=== PATIENT | male | born 2000 | race African-American/Black ===

== ENCOUNTER 2022-12-10 14:41 | Emergency (ER) | payer OTHER ==
[2022-12-10 14:47] VITALS: BP 147/88; PULSE 83; RESP 18; TEMP 98.7; BMI 30.8
[2022-12-10] MEDS ORDERED: hydrOXYzine PAMOATE 25 MG CAPSULE (FP) PO ONE ×2 (15:39→15:41)
[2022-12-10] MEDS ORDERED: MAG HYDROX/AL HYDROX/SIMETH 30 ML UNIT-DOSE CUP PO ONE (15:39)
[2022-12-10] MEDS ORDERED: FAMOTIDINE 20 MG TABLET PO ONE (15:39)
[2022-12-10] MEDS ORDERED: FAMOTIDINE 20 MG TABLET ONE (15:43)
[2022-12-10] MEDS ORDERED: MAG HYDROX/AL HYDROX/SIMETH 30 ML UNIT-DOSE CUP ONE (15:43)
[2022-12-10 15:51] LABS: BASO % 0.5 % (0-2.0); EOS % 0.3 % (0-4.5); HEMATOCRIT 45.3 % (35.4-49); HEMOGLOBIN 14.8 GM/dL (11.7-16.9); LYMPH % 24.6 % (8-40); MCH 25.6 pg (25.7-33.7); MCHC 32.8 g/dl (32.0-35.9); MEAN CELL VOLUME 78.2 fl (80-96); NEUT % 66.6 % (42.8-82.8); PLATELET COUNT 205 10^3/uL (134-434); RBC 5.79 M/mm3 (4.00-5.60); RDW 13.7 % (11.9-15.9); WHITE BLOOD COUNT 5.4 K/mm3 (4.0-10.0)
[2022-12-10 15:58] LABS: INR 1.2 (0.83-1.09); PROTHROMBIN TIME (PATIENT) 13.9 SEC (9.7-13.0)
[2022-12-10 16:00] LABS: ACTIVATED PTT 29.8 SECONDS (25.2-36.5)
[2022-12-10 16:21] LABS: CALCIUM 9.8 mg/dL (8.5-10.1)
[2022-12-10 16:22] LABS: ALBUMIN 4.5 g/dl (3.4-5.0)
[2022-12-10 16:25] LABS: CREATININE 1.1 mg/dL (0.55-1.3)
[2022-12-10 16:26] LABS: TOT PROT 8.2 g/dl (6.4-8.2)
[2022-12-10 16:27] LABS: BILIRUBIN,TOTAL 0.8 mg/dL (0.2-1)
[2022-12-10 16:33] LABS: BLOOD UREA NITROGEN 6.5 mg/dL (7-18)
== END 2022-12-10 20:00 | disposition home or self-care (01) ==
LOC: JER 14:41 → JERFT 14:41
DX: R07.89 Other chest pain (principal); R00.2 Palpitations; F41.9 Anxiety disorder, unspecified
CPT/HCPCS: 36415; 71046-TC-FY; 80053; 84443; 84484; 85025; 85379; 85610; 85730; 93005; 93010; 99285-25

== ENCOUNTER 2022-12-11 03:10 | Emergency (ER) | payer OTHER ==
[2022-12-11 03:23] VITALS: BP 148/82; PULSE 73; RESP 18; TEMP 98.3; BMI 30.8
== END 2022-12-11 05:24 | disposition home or self-care (01) ==
LOC: JER 03:10
DX: M25.512 Pain in left shoulder (principal); R07.9 Chest pain, unspecified
CPT/HCPCS: 93005; 93010; 99283-25

== ENCOUNTER 2022-12-15 01:44 | Emergency (ER) | payer OTHER ==
[2022-12-15 02:12] VITALS: BP 122/83; PULSE 84; RESP 18; TEMP 98; BMI 30.8
[2022-12-15] MEDS ORDERED: MAG HYDROX/AL HYDROX/SIMETH 30 ML UNIT-DOSE CUP PO ONE (03:03)
[2022-12-15] MEDS ORDERED: FAMOTIDINE 20 MG TABLET PO ONE (03:03)
[2022-12-15] MEDS ORDERED: FAMOTIDINE 20 MG TABLET ONE (03:25)
[2022-12-15] MEDS ORDERED: MAG HYDROX/AL HYDROX/SIMETH 30 ML UNIT-DOSE CUP ONE (03:26)
== END 2022-12-15 05:07 | disposition home or self-care (01) ==
LOC: JER 01:44
DX: F41.9 Anxiety disorder, unspecified (principal)
CPT/HCPCS: 71046-TC-FY; 93005; 93010; 99284-25

== ENCOUNTER 2023-04-05 12:29 | Emergency (ER) | payer OTHER ==
[2023-04-05 12:37] VITALS: BP 131/76; PULSE 80; RESP 17; TEMP 98.4; BMI 20.6
[2023-04-05] MEDS ORDERED: IBUPROFEN 600 MG TABLET (FP) PO ONE ×2 (13:39→13:42)
== END 2023-04-05 14:48 | disposition home or self-care (01) ==
LOC: JERFT 12:29
DX: M54.2 Cervicalgia (principal)
CPT/HCPCS: 71046-TC-FY; 93005; 93010; 99284-25